=== PATIENT | male | born 1985 | race Caucasian/White ===

== ENCOUNTER 2023-04-18 09:50 | Day surgery (SDC) | payer OTHER ==
[~2023-04-18] VITALS: Ht 177.8 cm; Wt 93.9 kg
[~2023-04-18 09:50] MED LIST: AJOV225I SC; BUSP15TA47 PO; MIRA3350 PO; PRAZ5CAP PO; SERT-141 PO; ZOLO100T PO
[2023-04-18] MEDS: NS 1,000 ML IV ONE (10:04)
[2023-04-18] MEDS ORDERED: propofoL 200 MG/20 ML VIAL As Ordered ONE (11:31)
[2023-04-18] MEDS ORDERED: LIDOCAINE 2% 100MG/5ML SDV (FOR ANES.) As Ordered ONE (11:31)
[2023-04-18 12:07] VITALS: TEMP 97.5
[2023-04-18 12:23] VITALS: BP 119/68; O2SAT 100
== END 2023-04-18 15:32 | disposition home or self-care (01) ==
LOC: M OPP 09:50
PROVIDERS: ATTEND Internal Medicine Gastroenterology
DX: K63.5 Polyp of colon (principal); K64.4 Residual hemorrhoidal skin tags; K64.8 Other hemorrhoids; K57.30 Diverticulosis of large intestine without perforation or abscess without bleeding; R19.4 Change in bowel habit; Z79.899 Other long term (current) drug therapy; F17.200 Nicotine dependence, unspecified, uncomplicated